=== PATIENT | female | born 1950 | race Caucasian/White ===

== ENCOUNTER → 2017-11-20 | Outpatient (CLI) | payer MEDICARE, OTHER | LOC: M.RAD 10:12 | DX: J45.901 Unspecified asthma with (acute) exacerbation (principal) ==

== ENCOUNTER → 2018-03-19 | Outpatient (CLI) | payer MEDICARE, OTHER | LOC: M.RAD 12:14 | DX: M51.35 Other intervertebral disc degeneration, thoracolumbar region (principal); M17.12 Unilateral primary osteoarthritis, left knee; M25.78 Osteophyte, vertebrae; M53.3 Sacrococcygeal disorders, not elsewhere classified; G89.29 Other chronic pain ==